=== PATIENT | female | born 1955 | race Two or more races ===

== ENCOUNTER → 2024-03-15 | Outpatient (CLI) | payer MEDICARE, MEDICAID, SELFPAY ==
--- NOTE | 2024-03-15 09:30 | XR_ITS ---
Examination: Breast ultrasound complete, bilateral Date and time of exam: March 15, 2024 0949 hours INDICATIONS: Mammogram March 30, 2023 suspicious microcalcifications 20 mm mass upper outer left breast, personal history right breast cancer 2011 Technique: Real-time grayscale ultrasonographic imaging bilateral breasts, including all 4 quadrants as well as nipple retroareolar and axillary regions. Findings: Sonographic images right breast 12:00 circumscribed oval mass 5 x 5 mm 1:00 oval mass lobular margins with breast biopsy marker 6 x 5 x 7 mm 3:00 oval mass lobular margins 8 x 7 x 9 mm Sonographic images left breast 12:00 oval mass lobular margins with breast biopsy marker microcalcifications 18 x 10 x 16 mm 2:00 oval mass lobular margins 5 x 4 x 5 mm IMPRESSION: BI-RADS Category 4: Suspicious for malignancy Suspicious mass 3:00 position right breast, biopsy is needed to exclude breast carcinoma 3 month follow-up bilateral breast sonography strongly recommended, in particular to document stability of left breast nodules in the 12 and 2:00 position
--- NOTE | 2024-03-15 10:30 | XR_ITS ---
Examination: Screening digital mammography, bilateral Computer aided detection 3-D breast Tomosynthesis, bilateral Date and time of exam: March 15, 2024 1015 hours Compared to mammograms dating to December 10, 2018 Indication: Screening Technique: Nonmagnified MLO, CC views of the breasts to been obtained, reconstructed from 3-D Tomosynthesis images. R2 computer aided detection program utilized for evaluation of suspicious masses and/or abnormal calcifications. 3-D Tomosynthesis images obtained. Findings: The breasts are heterogeneously dense, which may obscure small masses Extensive right breast scar formation are noted consistent with history of right breast cancer and lumpectomy Breast biopsy marker upper outer left breast Large focus suspicious microcalcifications upper outer left breast Impression: BI-RADS Category 4: Suspicious for malignancy Suspicious grouped microcalcifications upper outer left breast, biopsy is needed to exclude breast carcinoma, these calcifications are amenable to stereotactic breast biopsy for diagnosis
== END | disposition home or self-care (01) ==
PROVIDERS: Referring Provider Specialist; Visit Provider Specialist
DX: Z12.31 Encounter for screening mammogram for malignant neoplasm of breast (principal); R92.343 Mammographic extreme density, bilateral breasts; R92.0 Mammographic microcalcification found on diagnostic imaging of breast; N63.15 Unspecified lump in the right breast, overlapping quadrants; N63.25 Unspecified lump in the left breast, overlapping quadrants
CPT/HCPCS: 76641; 77063; 77067

== ENCOUNTER → 2024-04-07 | Outpatient (CLI) | payer MEDICARE, MEDICAID, SELFPAY ==
[2024-04-07 12:36] LABS: Basophils # (Auto) 0.1 Thou/mm3 (0.0-0.2); Basophils % (Auto) 1 % (0-2.5); Eosinophils # (Auto) 0.1 Thou/mm3 (0.0-0.5); Eosinophils % (Auto) 2 % (0-10); Hematocrit 43.1 % (36.0-46.0); Immature Granulocytes % (Auto) 0 % (0-0); Immature Granulocytes Auto 0.01 Thou/mm3 (0.00-0.00); Lymphocytes # (Auto) 2.9 Thou/mm3 (1.0-4.8); Lymphocytes % (Auto) 42 % (10-50); Mean Corpuscular HGB Conc 32.5 g/dl (31.0-37.0); Mean Corpuscular Hemoglobin 28.5 pg (25.0-35.0); Mean Corpuscular Volume 88 fL (80-100); Monocytes # (Auto) 0.4 Thou/mm3 (0.0-0.8); Monocytes % (Auto) 5 % (0-12); Neutrophils # (Auto) 3.5 Thou/mm3 (1.8-7.7); Neutrophils % (Auto) 50 % (37-80); Nucleated Red Blood Cell % 0 /100 WBC (0); Platelet Count 208 Thou/mm3 (140-440); RDW Standard Deviation 42.7 fL (36.4-46.3); Red Blood Count 4.91 Miln/mm3 (4.00-5.20)
[2024-04-07 12:51] LABS: Alanine Aminotransferase 13 U/L (10-49); Albumin, Serum 4.7 gm/dL (3.4-4.8); Albumin/Globulin Ratio 2.1 (1.2-2.2); Alkaline Phosphatase 112 U/L (46-116); Anion Gap 6 (7-16); Aspartate Amino Transferase 14 U/L (0-34); BUN/Creatinine Ratio 19 Ratio (12-20); Bilirubin,Total 1.3 mg/dL (0.3-1.2); Blood Urea Nitrogen 15 mg/dL (9-23); Calcium 10.5 mg/dL (8.3-10.6); Calcium (Corrected) 10.5 mg/dL (8.5-10.1); Carbon Dioxide 30.3 mMol/L (20.0-31.0); Chloride 106 mMol/L (98-107); Creatinine (Component) 0.8 mg/dL (0.6-1.3); Globulin 2.2 gm/dL (2.3-3.5); Glucose 89 mg/dL (74-106); Osmolality,Calculated 282 (275-295); Potassium 4.6 mMol/L (3.4-5.1); Sodium 142 mMol/L (136-145); Total Protein 6.9 gm/dL (5.7-8.2); eGFR > 60 See Note
[2024-04-07 13:07] LABS: CA 15-3 7.1 U/mL (<32.4); Carcinoembryonic Antigen 1.8 ng/mL (0.0-5.0)
== END | disposition home or self-care (01) ==
PROVIDERS: PCP Registered Nurse Community Health; Referring Provider Internal Medicine Hematology & Oncology; Visit Provider Internal Medicine Hematology & Oncology
DX: C50.211 Malignant neoplasm of upper-inner quadrant of right female breast (principal)
CPT/HCPCS: 36415; 80053; 82378; 85025; 86300

== ENCOUNTER → 2024-04-07 | Outpatient (CLI) | payer MEDICARE, MEDICAID, SELFPAY ==
[2024-04-06 10:47] LABS: Basophils # (Auto) 0.1 Thou/mm3 (0.0-0.2); Basophils % (Auto) 2 % (0-2.5); Eosinophils # (Auto) 0.2 Thou/mm3 (0.0-0.5); Eosinophils % (Auto) 2 % (0-10); Hematocrit 43.6 % (36.0-46.0); Immature Granulocytes % (Auto) 0 % (0-0); Immature Granulocytes Auto 0.02 Thou/mm3 (0.00-0.00); Lymphocytes # (Auto) 3.1 Thou/mm3 (1.0-4.8); Lymphocytes % (Auto) 42 % (10-50); Mean Corpuscular HGB Conc 32.1 g/dl (31.0-37.0); Mean Corpuscular Hemoglobin 28.5 pg (25.0-35.0); Mean Corpuscular Volume 89 fL (80-100); Monocytes # (Auto) 0.5 Thou/mm3 (0.0-0.8); Monocytes % (Auto) 6 % (0-12); Neutrophils # (Auto) 3.6 Thou/mm3 (1.8-7.7); Neutrophils % (Auto) 48 % (37-80); Nucleated Red Blood Cell % 0 /100 WBC (0); Platelet Count 214 Thou/mm3 (140-440); RDW Standard Deviation 43.4 fL (36.4-46.3); Red Blood Count 4.91 Miln/mm3 (4.00-5.20); White Blood Count 7.4 Thou/mm3 (3.6-11.0)
[2024-04-06 11:00] LABS: INR 1.1 (0.9-1.3); Partial Thromboplastin Time 25.9 Seconds (22.0-36.0); Prothrombin Time 11.6 Seconds (9.0-12.2)
--- NOTE | 2024-04-07 10:00 | XR_ITS ---
Examination: Stereotactic guided vacuum assisted left breast biopsy with clip placement Specimen radiograph Date and time of exam:April 07, 2024 1139 hours INDICATIONS: Mammogram March 15, 2024 BI-RADS 4 suspicious grouped microcalcifications upper outer left breast Timeout performed, documenting correct patient, order, referring physician, patient's site and reason for procedure, allergies to medications Informed consent provided. Time out performed Technique: The lesion left breast was localized with a stereotactic apparatus. Local anesthesia was obtained after prepping the skin at the entrance site and applying sterile drape Maximum sterile barrier technique. 7 core biopsies were then obtained, vacuum assisted, stereotactically guided, at the lesion site. Specimens appear adequate. Stereotactic breast marker was introduced at the lesion site Estimated blood loss 2 cc. Patient tolerated the procedure well and appeared in satisfactory and stable condition at completion of the procedure Pathology report to follow Impression: Successful stereotactic breast biopsy as described above. Specimen radiograph contains the biopsied suspicious microcalcifications.
== END | disposition home or self-care (01) ==
LOC: CDIM 09:54
PROVIDERS: Radiology Diagnostic Radiology; PCP Family Medicine; Referring Provider Specialist; Visit Provider Specialist
DX: D05.82 Other specified type of carcinoma in situ of left breast (principal); Z01.812 Encounter for preprocedural laboratory examination
CPT/HCPCS: 19081; 36415; 85025; 85610; 85730; A4648; A4649

== ENCOUNTER 2024-04-11 09:44 | Outpatient (RCR) | payer MEDICARE, MEDICAID, SELFPAY ==
--- NOTE | 2024-04-17 13:13 | CTCFLWUP_ITS ---
Patient: DEVORA BEST : 1955 Page 3 of 4 FOLLOW UP NOTE DATE OF SERVICE: 04/11/2024 NAME: DEVORA BEST ACCOUNT: [id number] : 1955 AGE: 69 INTERVAL HISTORY: Patient is here to follow-up on the biopsy done on 04/07/2024. Patient have a new diagnosis of DCIS which is ER positive WY negative and Ki-67 1 to 2%. Patient is very worried and scared and requestin g to get mastectomy done. 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 07/14/2011: Patient had ultrasound-guided biopsy of the right breast nodule which showed ER positive P R negative HER-2/kal overexpressed invasive ductal carcinoma. 07/25/2011: Patient had right breast partial mastectomy, sentinel lymph node biopsy and right axillary dissection. She was found to have a 2.2cm invasive ductal carcinoma single focus, 2 out of 18 lymph nodes were positive for metastatic disease. 08/24/2011: Patient was started on TCH chemotherapy. She received a total of 6 cycles. Her last cycle was given on 12/17/2011. She continued on Herceptin for 1 year which was completed on 08/25/2012. 01/19/2012?03/10/2012: Patient had 6120 cGy of radiation therapy to the right chest wall. After compl eting the radiation therapy patient was tried on letrozole as well as anastrozole. She developed sig nificant arthralgias. They were discontinued. Patient was on Faslodex which she received monthly wh ich was changed to Aromasin on 01/11/2015. Aromasin was changed to tamoxifen on 12/31/2016 due to diff use musculoskeletal pains. 10/19/2017: Patient had bilateral screening digital mammograms which showed benign findings BI-RADS Cat egory 2. 09/17/2018: PET CT scan?10 mm weakly hypermetabolic oval mass retroareolar region right breast, SUV 2. 03 Recommend follow-up diagnostic mammography and bilateral breast sonography 12/12/2018: Bilateral mammograms?BI-RADS category II: Benign Findings. Recommend 1 year follow-up cecily bassett. 12/12/2018: Bilateral breast ultrasound?BI-RADS Category 2: Benign findings.Right breast 1:00 oval mas s 5 x 5 mm well marginated 1:00 oval mass 8 x 9 mm well marginated Left breast sonographic images no cystic or solid mass 12/31/2018: Bilateral breast MRI?BI-RADS Category 2: Benign findings Yearly follow-up mammography niesha mmended Six-month right breast sonogram follow-up recommended 10/25/2019: Patient had endometrial biopsy? 11/08/2019: Location Director is recommending changing tamoxifen to AI. 11/16/2019: Tamoxifen discontinued. Patient is started on Aromasin. 10/05/2023: Aromasin discontinued. 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 amlodipine - 5 mg 1 tab Daily 2. atorvastatin - 20 mg 1 tab Daily 3. B12 - 5,000-100 mcg Daily 4. BenadryL - 25 mg 1 tab Every day before sleep 5. biotin - 1 mg 1 tab Daily 6. Calcium 600 + D(3) - 1 tab Twice a Day 7. exemestane - 25 mg 1 tab Daily 8. Fish Oil [place] 3-6-9 - 300-1,000 mg 2 Capsule Daily 9. gabapentin - 300 mg Three times a day 10. omeprazole - 20 mg 1 tab As needed 11. ondansetron - 4 mg 1 tab As needed 12. Ozempic - 2 mg/dose (8 mg/3 mL) Weekly 13. Plavix - 75 mg 1 tab Daily 14. traMADol - 50 mg 2 tab Daily 15. Ultram - 50 mg 1 tab As needed 16. Vitamin D2 - 1,250 mcg (50,000 unit) 1 Capsule Daily Medications Last Reconciled by Linda Ewing MA on 04/11/2024 ALLERGIES: amoxicillin-pot clavulanate; aspirin; Naproxen REVIEW OF SYSTEMS: A complete 14-point review of systems was performed and is negative except as noted in interval histo ry. PHYSICAL EXAMINATION: VITAL SIGNS: Temperature?99, B/P?148/76, Oxygen?Saturation?96% Weight?203?lbs PAIN: 0 - No pain ECOG Performance Status: 0 - Asymptomatic and fully active GENERAL APPEARANCE: Appears well, in no apparent distress, appropriately interactive. HEENT: Normocephalic, no temporal wasting, normal conjunctiva, no scleral icterus, normal hearing, li ps without lesions, neck normal range of motion. CARDIOVASCULAR: Not assessed. PULMONARY: Normal respiratory effort, no respiratory distress or use of accessory muscles, speaking i n full sentences, no tachypnea. EXTREMITIES: No pedal edema or cyanosis. SKIN: Normal skin appearance. NEUROLOGIC: Alert and oriented x4. PSHYCHIATRIC: Appropriate affect, mood normal, behavior normal, intact thought and speech. LABORATORY DATA: I have personally reviewed and interpreted each of the patient?s relevant lab tests, abnormal finding s are below: Date 04/07/24 ??GLUCOSE,RANDOM?(mg/dL) 89 ??BLOOD?UREA?NITROGEN?(mg/dL) 15 ??CREATININE?(mg/dL) 0.80 ??SODIUM?(mmol/L) 142 ??POTASSIUM?(mmol/L) 4.6 ??CHLORIDE?(mmol/L) 106 ??CrCl?(CandG)?(ml/min) 98.51 ??AST/SGOT?(Unit/L) 14 ??ALT/SGPT?(Unit/L) 13 ??ALKALINE?PHOSPHATASE?(Unit/L) 112 ??BILIRUBIN,?TOTAL?(mg/dL) 1.3?H ??PROTEIN?TOTAL?(gm/dl) 6.9 ??ALBUMIN,?SERUM?(gm/dl) 4.7 ??GLOBULIN?(gm/dl) 2.2?L ??ALBUMIN/GLOBULIN?RATIO 2.1 ??CALCIUM,?SERUM?(mg/dL) 10.5 ??CALCIUM?SERUM?(CORRECTED)?(mg/dL) 10.5?H ASSESSMENT/PLAN: #1 high-grade DCIS Patient's recent biopsy showed high-grade DCIS recurrence Patient have a history of stage IIIa (pT2, pN2a,cM0) ER positive WY negative HER-2/kal overexpressed invasive ductal carcinoma of right breast. Status post surgery, radiation therapy, adjuvant chemoth erapy Patient had endometrial biopsy which showed hyperplasia without atypia. Patient's Aromasin was stopp ed in July 2023 Plan is to send Ms. Best for surgery for possible bilateral mastectomy with reconstruction Will place referral to plastics as well as general surgery Will also do genetic testing to see if patient is at high risk of breast cancer recurrences Will restart her on antiendocrine therapy. Patient was tolerating exemestane so will restart Advised to take calcium and vitamin D3 ORDERS: Plastics and general surgery referrals done CBC CMP CA 15-3 Aromasin reordered Calcium and vitamin D3 Genetic testing to see if patient has a BRCA1 or BRCA2 RETURN TO CLINIC: 6 to 8 weeks BILLING AND COMPLIANCE: I reviewed external records from providers outside my specialty as summarized above. I spent a total of 50 minutes on this patient?s care on the day of their visit excluding time spent related to any bi lled procedures. This time includes time spent with the patient as well as time spent documenting in the medical record, reviewing patients records and tests, obtaining history, placing orders, communi cating with other healthcare professionals, counseling the patient, family or caregiver, and/or care coordination for the diagnoses above. Electronically Signed by: {Object.Sanct_ID*PnP.NameFL@M}, {Object.Sanct_ID*PnP.Suffix@U} D: {Object.Sanct_Date} T: {Object.Sanct_Time} CC: Zahida?Rosanne,? PCP: Mihir Marr Referring: Mihir Marr This document was completed utilizing speech recognition software. Grammatical errors, random word in sertions, pronoun errors, and incomplete sentences are an occasional consequence of this system due t o software limitations, ambient noise, and hardware issues. Any formal questions or concerns about th e content, text or information contained within the body of this dictation should be directly address ed to the provider for clarification.
== END 2024-04-19 23:59 | disposition home or self-care (01) ==
LOC: SCTC 09:44
PROVIDERS: PCP Family Medicine; Referring Provider Family Medicine; Visit Provider Internal Medicine Hematology & Oncology
DX: D05.12 Intraductal carcinoma in situ of left breast (principal); Z17.0 Estrogen receptor positive status [ER+]; Z17.22 Progesterone receptor negative status; Z85.3 Personal history of malignant neoplasm of breast; N85.00 Endometrial hyperplasia, unspecified
CPT/HCPCS: 99212; G0463

== ENCOUNTER → 2024-04-28 | Outpatient (CLI) | payer MEDICARE, MEDICAID, SELFPAY ==
[2024-04-28 09:46] LABS: Misc Send Out* See Sep Rpt
== END | disposition home or self-care (01) ==
LOC: SCTO 09:30
PROVIDERS: PCP Family Medicine; Referring Provider Internal Medicine Hematology & Oncology; Visit Provider Internal Medicine Hematology & Oncology
DX: C50.211 Malignant neoplasm of upper-inner quadrant of right female breast (principal)

== ENCOUNTER 2024-06-10 07:15 | Day surgery (SDC) | payer MEDICARE, MEDICAID, SELFPAY ==
--- NOTE | 2024-06-07 10:05 | EKG_ITS ---
[facility] Test Date: 2024-06-07 Pat Name: DEVORA NICHOLSON Department: Room: - Gender: Female [place]: JAra : 1955 Requested By: Vinny Ro Order Number: [id number] Reading MD: Vinny Ro Measurements Intervals Roxie Rate: 66 P: 25 GA: 128 QRS: 35 QRSD: 98 T: 61 QT: 398 QTc: 419 Interpretive Statements SINUS RHYTHM Compared to ECG 10/17/2019 08:25:23 No significant changes /store/S0/[id number].pdf
[2024-06-07 10:15] VITALS: BMI 28.2
[2024-06-07 11:47] LABS: Alanine Aminotransferase 12 U/L (10-49); Albumin, Serum 4.8 gm/dL (3.4-4.8); Alkaline Phosphatase 116 U/L (46-116); Anion Gap 8 (7-16); Aspartate Amino Transferase 13 U/L (0-34); BUN/Creatinine Ratio 14 Ratio (12-20); Bilirubin,Total 1.5 mg/dL (0.3-1.2); Blood Urea Nitrogen 11 mg/dL (9-23); Carbon Dioxide 28.9 mMol/L (20.0-31.0); Chloride 105 mMol/L (98-107); Creatinine (Component) 0.8 mg/dL (0.6-1.3); Estimated Creatinine Clearance 85.3 mL/min (>60); Globulin 2.4 gm/dL (2.3-3.5); Glucose 114 mg/dL (74-106); INR 1.1 (0.9-1.3); Osmolality,Calculated 283 (275-295); Partial Thromboplastin Time 26.7 Seconds (22.0-36.0); Potassium 4.1 mMol/L (3.4-5.1); Sodium 142 mMol/L (136-145); Total Protein 7.2 gm/dL (5.7-8.2); eGFR > 60 See Note
[2024-06-07 11:52] LABS: Basophils # (Auto) 0.1 Thou/mm3 (0.0-0.2); Basophils % (Auto) 1 % (0-2.5); Eosinophils # (Auto) 0.2 Thou/mm3 (0.0-0.5); Eosinophils % (Auto) 2 % (0-10); Hematocrit 43.8 % (36.0-46.0); Hemoglobin 14.2 g/dL (12.0-16.0); Immature Granulocytes % (Auto) 0 % (0-0); Immature Granulocytes Auto 0.02 Thou/mm3 (0.00-0.00); Lymphocytes # (Auto) 3.1 Thou/mm3 (1.0-4.8); Lymphocytes % (Auto) 34 % (10-50); Mean Corpuscular HGB Conc 32.4 g/dl (31.0-37.0); Mean Corpuscular Hemoglobin 28.8 pg (25.0-35.0); Mean Corpuscular Volume 89 fL (80-100); Monocytes # (Auto) 0.6 Thou/mm3 (0.0-0.8); Monocytes % (Auto) 7 % (0-12); Neutrophils % (Auto) 56 % (37-80); Nucleated Red Blood Cell % 0 /100 WBC (0); Platelet Count 234 Thou/mm3 (140-440); RDW Standard Deviation 43.7 fL (36.4-46.3); Red Blood Count 4.93 Miln/mm3 (4.00-5.20)
--- NOTE | 2024-06-09 14:12 | SUR.PREOP ---
Pt stated her left big toe nail came off and she has a small drainage, Dr Lin HERNANDEZ notified Ratna, she stated she will let Dr Chen know and if anything she will let me know.
[2024-06-10] VITALS (17 sets, daily range): BP systolic 74–186; BP diastolic 47–90; PULSE 52–85; RESP 15–20; TEMP 35.9–36.5; O2SAT 93–100; BMI 28.6
--- NOTE | 2024-06-10 08:14 | CHAP ---
Patient expressed gratitude for prayer before their procedure.
--- NOTE | 2024-06-10 13:00 | SUR.PHASEI ---
1300: Pt. AAOx4, vitals stable, breathing unlabored, no complaint of pain or nausea, dressing to chest CDI, x2 SHEY drains in place draining sanguineous fluid, report received from King MALCOLM, David Tucker RN.
[2024-06-10] MEDS: GABAPENTIN 300 MG CAPSULE PO (13:41)
[2024-06-10] MEDS: fentaNYL CIT INJ 50 mCg/ML AMP 2ML IV ×4 (13:52→15:05)
--- NOTE | 2024-06-10 14:00 | ESOP_ITS ---
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 Patient also had some lymph nodes in both axilla which were removed Procedure Description This patient is scheduled for bilateral mastectomy for the following reasons. Patient has developed second primary on the left breast in spite of aggressive treatment following the right breast consisting of chemotherapy and radiation and hormone treatment. The left breast carcinoma was seen over the left upper and outer quadrant and was biopsy-proven and turned out to be high-grade DCIS. Instead of operating on this lesion once again with a lumpectomy followed by radiation with possible chance for recurrence we strongly recommended bilateral mastectomy. This would avoid additional radiation for this patient which she has already had on the right breast. Moreover patient skip having a lot of abnormality on the mammogram on both the breast requiring multiple biopsies. Therefore bilateral mastectomy was planned. After the patient was brought to the operating room endotracheal anesthesia was given. Then both the breasts were washed with ChloraPrep solution and draped in a sterile manner. Tablets were stitched on the side of the chest to obtain a sterile drape. Timeout was performed. Then I made an elliptical incision over the right breast and raised the skin flaps using skin hooks and dissected out the anterior breast. The breast was removed from the pectoralis major muscle and I found a node in the right axilla which was removed for histopathology. The flap is very thin on the right side because of the radiation. Skin was closed with nelson. Then the left breast was similarly removed by making elliptical incision and raising the flap using skin hooks. At the upper and outer quadrant 2 o'clock position patient had a hard lump which may be the DCIS. This was very close to the skin and I removed the anterior breast from the chest wall and delivered it. Additional margins were taken to the for the possible cancer which was showing scar tissue on the left breast. There were 2 lymph nodes which were removed from the left axilla as well and sent separately. Then the skin was closed using 3-0 chromic for the subcutaneous tissue and nelson for approximation of the skin. Dressing was applied with Adaptic and fluff on the left drain on both sides which is a 15 round Franklin-Chew which was stitched to the chest wall with 2-0 silk. Patient tolerated the procedure well and left operating room in stable condition Anesthesia GETA Pathology / specimen Other (1. Right breast, #2 right axillary lymph node, #3 left breast with palpable abnormality, #4 2 left axillary lymph nodes, #5 additional margin for the left breast mass) Estimated Blood Loss 250 Condition Stable Disposition PACU Surgeon Earnestine Demarco MD Surgical Staff Operation Date: 06/10/24 09:45 Case Staff [employer] PRODUCTION ASSOCIATE: Tierra Meehan. BIOFU[employer] PRODUCTION ASSOCIATE: Gio Escalante RNflanging roll operator: Garima Tidwell RNflanging roll operator: Ivis Whittington
[2024-06-10] MEDS: ACETAMINOPHEN IVPB 1,000 MG/100 ML VIAL 250 MG IV (15:05)
--- NOTE | 2024-06-10 15:30 | SUR.PHASEII ---
1530: Pt. AAOx4, vitals stable, breathing unlabored, no complaint of pain or nausea, dressing to breast CDI, x2 SHEY drains present draining sanguineous fluid, pt. tolerated sips of water well, gave report to Whitney RAIN prior to transfer to room 379. Family made aware of transfer to room, pt. transferred with all personal belongings.
--- NOTE | 2024-06-10 16:11 | PC.NURSE ---
Addendum entered by Fabian Mena RN 06/10/24 16:28: RN spoke with Dr. Chen regarding the left upper extremity IV. Dr. Chen states it is ok to use the left arm for IV, blood pressure and lab draws.. Original Note: RN spoke with Dr. Chen regarding the left upper extremity IV. Dr. Chen states it is ok to use the IV.
[2024-06-10] MEDS: SODIUM CHLORIDE 0.9% 1000 ML 1,000 ML 50 ML IV (16:29)
[2024-06-10] MEDS: KETOROLAC INJ 30 MG/ML VIAL IVP (16:30)
[2024-06-10] MEDS: SODIUM CHLORIDE 0.9% 1000 ML 1,000 ML 999 ML IV (17:35)
--- NOTE | 2024-06-10 17:48 | EVENTNT_ITS ---
Documentation for date of: 06/10/24 Event Note Event Note: RAPID RESPONSE Time : 5:45 PM Reason: Low BP, MAP <60 Ms Nasir is a 69 year old female s/p bilateral mastectomy tran DCIS, performed today, with <250 cc blood loss. BP post operatively was 150/70s. Patient received IV ketorolac 30 mg x 1 and was running maintenance fluids at 50 cc/h as per general surgery recommendations. Rapid response was called for MAP 58 and low blood pressure of 80s/60s. On physical exam, patient endorses mild dizziness and blurry vision which lasted for about 10 seconds and improved spontaneously. After careful review of the chart, patient was started on 1 L lactated ringer bolus. Patient's blood pressure improved to 110s/70s over the next 7-8 minutes while IV fluids are being pressure bagged. Maintenance fluid rate was also increased to 75 cc/h. General Surgery Dr Demarco was duly informed about the rapid and updated on patient condition. Plan of care discussed with attending Kenneth Murguia M.D. PGY2 Disclaimer: This note was dictated by speech recognition. Minor errors in bisque placer may be present due to voice recognition software.
[2024-06-10] MEDS: SODIUM CHLORIDE 0.9% 1000 ML 1,000 ML 75 ML IV (18:35)
[2024-06-10] MEDS: SODIUM CHLORIDE 0.9% 1000 ML 1,000 ML 125 ML IV (19:19)
[2024-06-10] MEDS: FAMOTIDINE INJ 10 MG/ML VIAL 2 ML 40 MG IVP (19:46)
[2024-06-10 19:51] LABS: Basophils # (Auto) 0.1 Thou/mm3 (0.0-0.2); Basophils % (Auto) 1 % (0-2.5); Eosinophils # (Auto) 0.1 Thou/mm3 (0.0-0.5); Eosinophils % (Auto) 1 % (0-10); Hematocrit 31.8 % (36.0-46.0); Hemoglobin 10.5 g/dL (12.0-16.0); Immature Granulocytes % (Auto) 0 % (0-0); Immature Granulocytes Auto 0.07 Thou/mm3 (0.00-0.00); Lymphocytes # (Auto) 1.4 Thou/mm3 (1.0-4.8); Lymphocytes % (Auto) 7 % (10-50); Mean Corpuscular Hemoglobin 29.7 pg (25.0-35.0); Mean Corpuscular Volume 90 fL (80-100); Monocytes # (Auto) 0.5 Thou/mm3 (0.0-0.8); Monocytes % (Auto) 3 % (0-12); Neutrophils # (Auto) 16.2 Thou/mm3 (1.8-7.7); Neutrophils % (Auto) 88 % (37-80); Nucleated Red Blood Cell % 0 /100 WBC (0); Platelet Count 211 Thou/mm3 (140-440); RDW Standard Deviation 43.8 fL (36.4-46.3); Red Blood Count 3.54 Miln/mm3 (4.00-5.20); White Blood Count 18.3 Thou/mm3 (3.6-11.0)
[2024-06-10] MEDS: INSULIN LISPRO (AdmeLOG) 1 UNIT/0.01 ML UNIT SC (21:22)
--- NOTE | 2024-06-10 21:26 | PD.SURPROG ---
Documentation for date of: 06/10/24 Subjective Subjective Narrative: The patient started having hypotension this evening around 5:00 and a rapid response was called. Her blood pressure was in the range of 70s. When I arrived her blood pressure has been brought to normal by infusion of fluid. Patient is awake and alert and does not complain any pain I advised her to give some IV fluid. Exam Vital Signs Temp Pulse Resp BP Pulse Ox O2 Del Method O2 Flow Rate 96.7 F L 78 17 97/57 L 95 Room Air 2 06/10/24 20:00 06/10/24 21:25 06/10/24 20:00 06/10/24 21:06/10/24 20:00 06/10/24 20:00 06/10/24 15:15 Assessment & Plan Assessment Additional comments: Impression: Possible postoperative bleeding We shall check the hemoglobin and I will infuse normal saline at 125 cc/h Plan Plan: We shall monitor the blood pressure closely Procedures Procedures Bilateral mastectomy
--- NOTE | 2024-06-10 21:29 | PD.SURPROG ---
Documentation for date of: 06/10/24 Subjective Subjective Narrative: The patient was seen again around 9:00 this p.m. because her blood pressure was in the 90s. Her hemoglobin showed 10.4. WBC is elevated 18th Exam Vital Signs Temp Pulse Resp BP Pulse Ox O2 Del Method O2 Flow Rate 96.7 F L 78 17 97/57 L 95 Room Air 2 06/10/24 20:00 06/10/24 21:25 06/10/24 20:00 06/10/24 21:06/10/24 20:00 06/10/24 20:00 06/10/24 15:15 Her vital signs are normal at this time and her heart rate is 78 Routine Chest/Breast/Axilla Exam Comments: I looked at the chest wound on the left side and it seemed to have a hematoma underneath and it was fluctuant Assessment & Plan Assessment Additional comments: Impression: Postoperative bleeding at the site of mastectomy Plan Plan: We will have to take the patient to the operating room to stop the bleeding. Franklin-Chew is draining fair amount of blood on the left side. This was explained to the family and the patient and she is agreeable Procedures Procedures Bilateral mastectomy
[2024-06-11] VITALS (28 sets, daily range): BP systolic 91–166; BP diastolic 50–83; PULSE 77–93; RESP 16–95; TEMP 36.2–37.4; O2SAT 92–99
--- NOTE | 2024-06-11 00:21 | SUR.PHASEI ---
Received pt and report from KOFFI Gómez and Dr. Ro. Patient resting with eyes closed, vss, no distress noted. dressing to bilat breast CDI, breast binder in place. SHEY drains x2, draining well. f/c inplace, draining well. IV to left hand in place, no s/s of redness or infiltration noted. will continue to monitor
[2024-06-11 00:57] LABS: Hematocrit 25.1 % (36.0-46.0)
--- NOTE | 2024-06-11 00:57 | SUR.PHASEI ---
pt recovering well.. vss, dressing remains cdi, f/c continues to drain. SHEY drain x2 continues to drain well. IV still intact, no s/s of infiltration or redness to site. no distress noted. Report given to KOFFI Mishra.
[2024-06-11] MEDS: SODIUM CHLORIDE 0.9% 1000 ML 1,000 ML 150 ML IV ×2 (00:59→04:52)
[2024-06-11] MEDS: GABAPENTIN 100 MG CAPSULE 300 MG PO ×3 (05:44→21:31)
[2024-06-11 06:40] LABS: Basophils # (Auto) 0.1 Thou/mm3 (0.0-0.2); Basophils % (Auto) 1 % (0-2.5); Eosinophils % (Auto) 0 % (0-10); Hematocrit 21.8 % (36.0-46.0); Immature Granulocytes % (Auto) 1 % (0-0); Immature Granulocytes Auto 0.06 Thou/mm3 (0.00-0.00); Lymphocytes % (Auto) 15 % (10-50); Mean Corpuscular HGB Conc 32.6 g/dl (31.0-37.0); Mean Corpuscular Hemoglobin 29.7 pg (25.0-35.0); Mean Corpuscular Volume 91 fL (80-100); Monocytes # (Auto) 0.7 Thou/mm3 (0.0-0.8); Monocytes % (Auto) 6 % (0-12); Neutrophils # (Auto) 10.1 Thou/mm3 (1.8-7.7); Neutrophils % (Auto) 78 % (37-80); Nucleated Red Blood Cell % 0 /100 WBC (0); Platelet Count 153 Thou/mm3 (140-440); Red Blood Count 2.39 Miln/mm3 (4.00-5.20)
[2024-06-11 06:47] LABS: Hemoglobin 7.1 g/dL (12.0-16.0)
--- NOTE | 2024-06-11 07:39 | PC.SS ---
Patient Maricruz Best is a 69 Year old female admitted for FARRAH MAST [id number]. SS met with patient at bedside to review demographic information. Patient reports she lives at home with her daughter, Anais Scott who she reports is her surrogate decision maker [phone]. Patient appeared to be alert and oriented. Patient reported that prior to admission she was able to ambulate without assistance. Patient reports she is able to complete ADL's independently. Patient reports her PCP is Mihir Marr. At time of discharge she will return back home. Next kin: Daughter, Heidi Scott Discharge plan: Home
--- NOTE | 2024-06-11 07:57 | PC.NURSE ---
Doctor Edin called, new orders received to transfuse 2 units of PRBCs due to hgb of 7.1, to transfuse slowly. Doctor is aware of labs.
[2024-06-11] MEDS: INSULIN LISPRO (AdmeLOG) 1 UNIT/0.01 ML UNIT SC ×4 (08:07→21:49)
[2024-06-11] MEDS: ATORVASTATIN CALCIUM 20 MG TABLET PO (08:10)
[2024-06-11] MEDS: PANTOPRAZOLE 40 MG TABLET 20 MG PO (08:10)
--- NOTE | 2024-06-11 12:42 | PD.SUROPNT ---
Date of Procedure 06/10/24 Pre Op Diagnosis Bleeding from the mastectomy site on the left side Post Op Diagnosis Same Procedure Control of the bleeding from the mastectomy site on the left side Findings Patient was found to have some arterial as well as small oozing from the surface of the muscle after mastectomy 8 hours ago. Bleeding was controlled. Procedure Description The patient was brought to the operating room and endotracheal anesthesia was given. Then the dressing was removed and the area was washed with Betadine solution and draped in a sterile manner. Patient received 2 g of Ancef. Then I opened the incision by removing the nelson after the timeout was performed. I was able to evacuate large clots on the anterior chest wall below the flaps. I used some saline solution and irrigated the area and look for bleeding. There were couple of arterial bleeding which were small but actively bleeding and they were suture-ligated with 3-0 chromic. Then I found out that the anterior surface of the pectoralis major muscle was showing some signs of a small amount of oozing which was controlled with cautery. A diligent search was made for any additional bleeding. Some of the clots in the axilla were removed and looked for any bleeding. I used a two 0-0 and 3-0 chromic sutures to control any oozing. Then hot packs were used to make sure that there was not much bleeding patient also received tranexamic acid 1 g during the surgery. On the lateral portion of the wound she was still collecting some blood. Therefore I used Surgicel powder for hemostasis. Then I left a #15 round Franklin-Chew drain and closed the wound in layers using 3-0 chromic for the subcutaneous tissue and then nelson for the skin. Dressing was applied with Adaptic and fluff with compression bandage with breast binder. Patient tolerated the procedure well Anesthesia GETA Pathology / specimen None IVF Infused 1,500 Estimated Blood Loss 400 Condition Stable Disposition PACU Surgeon Earnestine Demarco MD Surgical Staff Operation Date: 06/11/24 23:15 <No data on this case meets the specified criteria>
--- NOTE | 2024-06-11 12:47 | ESPR_ITS ---
Documentation for date of: 06/11/24 Subjective Subjective Narrative: The patient is feeling better after surgery last night to control the bleeding. Her vital signs are normal except mild tachycardia Exam Vital Signs Temp Pulse Resp BP Pulse Ox O2 Del Method O2 Flow Rate 97.8 F 81 18 113/63 92 L Room Air 1 06/11/24 12:00 06/11/24 12:00 06/11/24 12:00 06/11/24 12:00 06/11/24 12:06/11/24 12:06/11/24 08:49 Routine Chest/Breast/Axilla Exam Comments: Examination of the chest wound showed no further evidence of bleeding. Franklin- Chew drainage is minimal. He is drained only about 25 cc and it is dark blood. The blood pressure has been maintained ever since his surgery at a reasonable level. Her blood glucose is under control to Assessment & Plan Assessment Additional comments: Impression: Stable postoperative course following control of bleeding. Her hemoglobin is 7.1 as expected Plan Plan: We shall transfuse 2 units of blood to bring of the hemoglobin around 10. I discussed with the patient and her daughter about the pros and cons of transfusion. Even though she may not need a transfusion until it goes below 7 g I strongly feel that we should catch up with the blood that is lost due to bilateral mastectomy. She may have some systemic symptoms like weakness and tiredness if she continues to be anemic. I explained to them that it will take some time for them to build up the hemoglobin. Patient has therefore decided to get the blood transfusion. Procedures Procedures Control of the bleeding from the mastectomy site on the left side
[2024-06-11] MEDS: HYDROcodone/APAP 5/325 TABLET 1 TAB PO ×2 (15:30→21:30)
[2024-06-11 17:50] LABS: Basophils # (Auto) 0.1 Thou/mm3 (0.0-0.2); Basophils % (Auto) 1 % (0-2.5); Eosinophils % (Auto) 0 % (0-10); Hematocrit 25.5 % (36.0-46.0); Immature Granulocytes % (Auto) 0 % (0-0); Immature Granulocytes Auto 0.03 Thou/mm3 (0.00-0.00); Lymphocytes # (Auto) 2.7 Thou/mm3 (1.0-4.8); Lymphocytes % (Auto) 27 % (10-50); Mean Corpuscular HGB Conc 33.7 g/dl (31.0-37.0); Mean Corpuscular Hemoglobin 29.6 pg (25.0-35.0); Mean Corpuscular Volume 88 fL (80-100); Monocytes # (Auto) 0.7 Thou/mm3 (0.0-0.8); Monocytes % (Auto) 7 % (0-12); Neutrophils # (Auto) 6.5 Thou/mm3 (1.8-7.7); Neutrophils % (Auto) 66 % (37-80); Nucleated Red Blood Cell % 0 /100 WBC (0); Platelet Count 154 Thou/mm3 (140-440); RDW Standard Deviation 49.1 fL (36.4-46.3); Red Blood Count 2.91 Miln/mm3 (4.00-5.20)
[2024-06-11 17:59] LABS: Hemoglobin 8.6 g/dL (12.0-16.0)
[2024-06-11] MEDS: amLODIPine BESYLATE 5 MG TABLET PO (20:12)
[2024-06-11] MEDS: DOCUSATE SOD 100 MG CAPSULE PO (20:13)
[2024-06-11] MEDS: MORPHINE SULF INJ 10 MG/ML VIAL 3 MG IVP (23:26)
[2024-06-12] VITALS: BP 116/57; PULSE 77; RESP 18; TEMP 36.8; O2SAT 96
[2024-06-12 04:00] VITALS: BP 132/61; PULSE 73; RESP 15; TEMP 36.9; O2SAT 92
[2024-06-12] MEDS: GABAPENTIN 100 MG CAPSULE 300 MG PO (05:50)
[2024-06-12] MEDS: MORPHINE SULF INJ 10 MG/ML VIAL 3 MG IVP (05:58)
[2024-06-12 06:32] LABS: Basophils # (Auto) 0.1 Thou/mm3 (0.0-0.2); Basophils % (Auto) 1 % (0-2.5); Eosinophils # (Auto) 0.1 Thou/mm3 (0.0-0.5); Eosinophils % (Auto) 1 % (0-10); Hematocrit 24.4 % (36.0-46.0); Immature Granulocytes % (Auto) 0 % (0-0); Immature Granulocytes Auto 0.03 Thou/mm3 (0.00-0.00); Lymphocytes # (Auto) 3.3 Thou/mm3 (1.0-4.8); Lymphocytes % (Auto) 37 % (10-50); Mean Corpuscular HGB Conc 33.2 g/dl (31.0-37.0); Mean Corpuscular Hemoglobin 29.3 pg (25.0-35.0); Mean Corpuscular Volume 88 fL (80-100); Monocytes # (Auto) 0.6 Thou/mm3 (0.0-0.8); Monocytes % (Auto) 7 % (0-12); Neutrophils # (Auto) 4.8 Thou/mm3 (1.8-7.7); Neutrophils % (Auto) 55 % (37-80); Nucleated Red Blood Cell % 0 /100 WBC (0); Platelet Count 131 Thou/mm3 (140-440); RDW Standard Deviation 49.9 fL (36.4-46.3); Red Blood Count 2.76 Miln/mm3 (4.00-5.20); White Blood Count 8.7 Thou/mm3 (3.6-11.0)
[2024-06-12 06:45] LABS: Hemoglobin 8.1 g/dL (12.0-16.0)
[2024-06-12 08:00] VITALS: BP 130/60; PULSE 73; RESP 18; TEMP 36.4; O2SAT 91
[2024-06-12] MEDS: PANTOPRAZOLE 40 MG TABLET 20 MG PO (09:55)
[2024-06-12] MEDS: ATORVASTATIN CALCIUM 20 MG TABLET PO (09:55)
[2024-06-12] MEDS: DOCUSATE SOD 100 MG CAPSULE PO (09:55)
--- NOTE | 2024-06-12 11:34 | PD.SURPROG ---
Documentation for date of: 06/12/24 Subjective Subjective Narrative: The patient is feeling comfortable. She is asymptomatic from the bleeding which was corrected with transfusion Exam Vital Signs Temp Pulse Resp BP Pulse Ox O2 Del Method O2 Flow Rate 97.6 F 73 18 130/60 91 L Room Air 82 06/12/24 08:00 06/12/24 08:00 06/12/24 08:00 06/12/24 08:00 06/12/24 08:00 06/12/24 08:00 06/11/24 13:35 Her vital signs are stable Routine Chest/Breast/Axilla Exam Comments: The dressing over the chest was changed. There is a minimal fluid on the right side on the Franklin-Chew. But the whole blood is draining on the left side mastectomy site Results Results: Laboratory Laboratory Narrative: Hemoglobin is stable around 8.1 g and WBC is within normal limits Assessment & Plan Assessment Additional comments: Impression: Stable postoperative course following bleeding at the site of mastectomy Anemia Diabetes Plan Plan: We shall discharge patient today and see her in my office tomorrow to take out the drain on the right side. The drain on the left side has to be left for some more time. Procedures Procedures Control of the bleeding from the mastectomy site on the left side
[2024-06-12 12:00] VITALS: BP 153/73; PULSE 77; RESP 18; TEMP 36.4; O2SAT 93
--- NOTE | 2024-06-13 07:25 | ESDS_ITS ---
RE: DEVORA NICHOLSON : 1955 DATE OF ADMISSION: 06/10/2024 DATE OF DISCHARGE: 06/12/2024 13:03 DATE OF ADMISSION: 06/10/2024 DATE OF DISCHARGE: 06/12/2024 FINAL DIAGNOSES: 1. High-grade DCIS of the left breast. 2. Status post invasive carcinoma of the right breast, treated with radiation and chemotherapy and surgery. Postoperative bleeding following bilateral mastectomy requiring a visit to the operating room for control of the bleeding 2 units of RBCs transfusion 3. Hypertension. 4. Diabetes. 5. Arthritis. 6. Peripheral vascular disease. 7. Obesity. REASON FOR ADMISSION: This patient was planned for bilateral mastectomy; and after the surgery, she was admitted to the hospital for pain control. Unfortunately, the patient developed bleeding on the left mastectomy site on the evening of surgery for which she had to be taken to the operating room for control of the bleeding on the same night, which was 06/10/2024. Her postoperative course was uneventful, but thepatient's hemoglobin dropped significantly to around 7.1g. Therefore, she was given 2 units of RBCs, and her hemoglobin stayed around 8.1 g. The patient's dressing was changed postoperatively and it seemed to be intact and therefore, the patient was discharged. She will be seen in my office for a followup. At the time of discharge, she was advised to resume all her prehospital medications, and pain will be controlled with tramadol as well as Tylenol. Patient had bilateral Franklin- Chew drains and she was instructed along with her daughter about how to take care of the. DT: 11:46:35 TT: 15:19:00 Ref: [id number] - TID: [id number] MTDD
== END 2024-06-12 13:03 | disposition home or self-care (01) ==
LOC: S2EX 07:19 → S3SX 23:04
PROVIDERS: PCP Family Medicine; Referring Provider Surgery; Visit Provider Surgery
PROC: (CPT 19301; principal; 2024-06-10 09:30)
DX: L76.22 Postprocedural hemorrhage of skin and subcutaneous tissue following other procedure (principal); E11.9 Type 2 diabetes mellitus without complications; I10 Essential (primary) hypertension; E11.51 Type 2 diabetes mellitus with diabetic peripheral angiopathy without gangrene; E66.9 Obesity, unspecified; Z68.28 Body mass index [BMI] 28.0-28.9, adult; Z85.3 Personal history of malignant neoplasm of breast; Z92.3 Personal history of irradiation
CPT/HCPCS: 19301; 36415; 80053; 85014; 85018; 85025; 85610; 85730; 86850; 86900; 86901; 86923; 88361; 93005; 94664; A4217; A4649; J0131; J0330; J0690; J1100; J1815; J1885; J2250; J2270; J2405; J2704; J2710; J2765; J2795; J3010; J3490; J7030; P9016; P9045; A9270; J1596; J1805

== ENCOUNTER 2024-06-23 14:08 | Outpatient (RCR) | payer MEDICARE, MEDICAID, SELFPAY ==
--- NOTE | 2024-06-27 01:02 | CTCFLWUP_ITS ---
Patient: DEVORA BEST : 1955 Page 3 of 4 FOLLOW UP NOTE DATE OF SERVICE: 06/23/2024 NAME: DEVORA BEST ACCOUNT: [id number] : 1955 AGE: 69 INTERVAL HISTORY: Patient had biopsy on 04/07/2024. Patient have a new diagnosis of DCIS which is ER positive TN negative and Ki-67 1 to 2%. Patient was sent to surgery for mastectomy and is now diagnosed with invasive breast cancer. Patient is here to follow-up ONCOLOGY HISTORY: DIAGNOSIS: Malignant neoplasm of upper-inner quadrant of right female breast [ICD10] C50.211 DATE OF DIAGNOSIS: 07/25/2011 stage IIIa right breast cancer s/p lumpectomy 04/07/2024 reoccurrence of high-grade DCIS STAGE/TNM: IIIA T2 N2a M0 TREATMENT HISTORY: Care?Plan Start?Date Cycle Day Intent HISTORY OF PRESENT ILLNESS: Devora Best is a 69-year-old Maldivian-speaking female with following oncology history. 07/14/2011: Patient had ultrasound-guided biopsy of the right breast nodule which showed ER positive TN negative HER-2/kal overexpressed invasive ductal carcinoma. 07/25/2011: Patient had right breast partial mastectomy, sentinel lymph node biopsy and right axillary dissection. She was found to have a 2.2cm invasive ductal carcinoma single focus, 2 out of 18 lymph nodes were positive for metastatic disease. 08/24/2011: Patient was started on TCH chemotherapy. She received a total of 6 cycles. Her last cycle was given on 12/17/2011. She continued on Herceptin for 1 year which was completed on 08/25/2012. 01/19/2012?03/10/2012: Patient had 6120 cGy of radiation therapy to the right chest wall. After completing the radiation therapy patient was tried on letrozole as well as anastrozole. She developed significant arthralgias. They were discontinued. Patient was on Faslodex which she received monthly which was changed to Aromasin on 01/11/2015. Aromasin was changed to tamoxifen on 12/31/2016 due to diffuse musculoskeletal pains. 10/19/2017: Patient had bilateral screening digital mammograms which showed benign findings BI-RADS Category 2. 09/17/2018: PET CT scan?10 mm weakly hypermetabolic oval mass retroareolar region right breast, SUV 2.03 Recommend follow-up diagnostic mammography and bilateral breast sonography 12/12/2018: Bilateral mammograms?BI-RADS category II: Benign Findings. Recommend 1 year follow-up mammogram. 12/12/2018: Bilateral breast ultrasound?BI-RADS Category 2: Benign findings.Right breast 1:00 oval mass 5 x 5 mm well marginated 1:00 oval mass 8 x 9 mm well marginated Left breast sonographic images no cystic or solid mass 12/31/2018: Bilateral breast MRI?BI-RADS Category 2: Benign findings Yearly follow-up mammography recommended Six-month right breast sonogram follow-up recommended 10/25/2019: Patient had endometrial biopsy? 11/08/2019: Fence Supervisor is recommending changing tamoxifen to AI. 11/16/2019: Tamoxifen discontinued. Patient is started on Aromasin. 10/05/2023: Aromasin discontinued. 04/07/2024 high-grade DCIS ER positive TN negative Ki-67 1 to 2% OTHER MEDICAL HISTORY/CONDITIONS: FAMILY HISTORY: SOCIAL HISTORY: [employer] HISTORY: MEDICATIONS: 1. atorvastatin - 20 mg 1 tab Daily 2. B12 - 5,000-100 mcg Daily 3. BenadryL - 25 mg 1 tab Every day before sleep 4. biotin - 1 mg 1 tab Daily 5. Calcium 600 + D(3) - 1 tab Twice a Day 6. exemestane - 25 mg 1 tab Daily 7. Fish Oil [place] 3-6-9 - 300-1,000 mg 2 Capsule Daily 8. gabapentin - 300 mg Three times a day 9. omeprazole - 20 mg 1 tab As needed 10. ondansetron - 4 mg 1 tab As needed 11. Ozempic - 2 mg/dose (8 mg/3 mL) Weekly 12. traMADol - 50 mg 2 tab Daily 13. Ultram - 50 mg 1 tab As needed 14. Vitamin D2 - 1,250 mcg (50,000 unit) 1 Capsule Daily Medications Last Reconciled by Linda Ewing MA on 06/23/2024 ALLERGIES: amoxicillin-pot clavulanate; aspirin; Naproxen REVIEW OF SYSTEMS: A complete 14-point review of systems was performed and is negative except as noted in interval history. PHYSICAL EXAMINATION: VITAL SIGNS: PAIN: 0 - No pain ECOG Performance Status: 0 - Asymptomatic and fully active GENERAL APPEARANCE: Appears well, in no apparent distress, appropriately interactive. HEENT: Normocephalic, no temporal wasting, normal conjunctiva, no scleral icterus, normal hearing, lips without lesions, neck normal range of motion. CARDIOVASCULAR: Not assessed. PULMONARY: Normal respiratory effort, no respiratory distress or use of accessory muscles, speaking in full sentences, no tachypnea. EXTREMITIES: No pedal edema or cyanosis. SKIN: Normal skin appearance. NEUROLOGIC: Alert and oriented x4. PSHYCHIATRIC: Appropriate affect, mood normal, behavior normal, intact thought and speech. LABORATORY DATA: I have personally reviewed and interpreted each of the patient?s relevant lab tests, abnormal findings are below: Date 06/11/24 06/12/24 ??WHITE?BLOOD?COUNT?(Thou/mm3) ? 13.0?H 10.0 8.7 ??RED?BLOOD?COUNT?(Miln/mm3) ? 2.39?L 2.91?L 2.76?L ??HEMOGLOBIN?(gm/dl) 8.0?L 7.1?L 8.6?L 8.1?L ??HEMATOCRIT?(%) 25.1?L 21.8?LL 25.5?L 24.4?L ??PLATELET?COUNT?(Thou/mm3) ? 153 154 131?L ??NEUTROPHILS?%,?AUTO?(%) ? 78 66 55 ??LYMPH?%,?AUTO?(%) ? 15 27 37 ??NEUTROPHILS,?AUTO?(Thou/mm3) ? 10.1?H 6.5 4.8 ASSESSMENT/PLAN: #1 Infiltrating lobular carcinoma 1 x 0.6 x 0.5 cm diagnosed on 06/10/2024 patient's recent biopsy showed high-grade DCIS recurrence and underwent left mastectomy. Right mastectomy prophylactically done with no cancer. Patient have a history of stage IIIa (pT2, pN2a,cM0) ER positive TN negative HER-2/kal overexpressed invasive ductal carcinoma of right breast. Status post surgery, radiation therapy, adjuvant chemotherapy Patient had endometrial biopsy which showed hyperplasia without atypia. Patient's Aromasin was stopped in July 2023 Plan is to send Ms. Best for surgery for possible bilateral mastectomy with reconstruction Patient was already started by me on exemestane I will get Oncotype DX to see if patient need chemotherapy CBC CMP Oncotype/prosigna natadriaa bone density RETURN TO CLINIC: 2 weeks with the results BILLING AND COMPLIANCE: I reviewed external records from providers outside my specialty as summarized above. I spent a total of 50 minutes on this patient?s care on the day of their visit excluding time spent related to any billed procedures. This time includes time spent with the patient as well as time spent documenting in the medical record, reviewing patients records and tests, obtaining history, placing orders, communicating with other healthcare professionals, counseling the patient, family or caregiver, and/or care coordination for the diagnoses above. Electronically Signed by: Steve Rebollar MD T: 12:59 AM CC: Zahida?Rosanne? PCP: Mihir Marr Referring: Mihir Marr This document was completed utilizing speech recognition software. Grammatical errors, random word insertions, pronoun errors, and incomplete sentences are an occasional consequence of this system due to software limitations, ambient noise, and hardware issues. Any formal questions or concerns about the content, text or information contained within the body of this dictation should be directly addressed to the provider for clarification.
== END 2024-07-18 23:59 | disposition home or self-care (01) ==
LOC: SCTC 14:08
PROVIDERS: PCP Family Medicine; Referring Provider Family Medicine; Visit Provider Internal Medicine Hematology & Oncology
DX: C50.912 Malignant neoplasm of unspecified site of left female breast (principal); Z17.0 Estrogen receptor positive status [ER+]; Z17.22 Progesterone receptor negative status; Z17.32 Human epidermal growth factor receptor 2 negative status; Z90.13 Acquired absence of bilateral breasts and nipples
CPT/HCPCS: 99212; G0463

== ENCOUNTER → 2024-07-07 | Outpatient (CLI) | payer MEDICARE, MEDICAID, SELFPAY ==
[2024-07-07 09:38] LABS: Misc Send Out* See Sep Rpt
== END | disposition home or self-care (01) ==
LOC: COPL 09:01
PROVIDERS: PCP Registered Nurse Community Health; Referring Provider Internal Medicine Hematology & Oncology; Visit Provider Internal Medicine Hematology & Oncology
DX: C50.211 Malignant neoplasm of upper-inner quadrant of right female breast (principal)

== ENCOUNTER 2024-08-29 10:10 | Outpatient (RCR) | payer MEDICARE, MEDICAID, SELFPAY ==
--- NOTE | 2024-08-29 12:49 | CTCFLWUP_ITS ---
Patient: DEVORA BEST : 1955 Page 2 of 2 FOLLOW UP NOTE DATE OF SERVICE: 08/29/2024 NAME: DEVORA BEST ACCOUNT: [id number] : 1955 AGE: 69 INTERVAL HISTORY: Subjective: Chief Complaint Follow-up for breast cancer treatment, review of Oncotype DX results History of Present Illness Devora Best, a patient with a history of breast cancer, presents for follow-up regarding her Oncotype DX results and ongoing cancer management. The patient's Oncotype DX score is reported to be very low, indicating a low risk of cancer recurrence. She has been taking exemestane since 2020 and underwent bilateral mastectomy on July 08, 2024. The patient reports adherence to her current medication regimen, including exemestane and weekly vitamin D as prescribed by her primary care physician. She has not had a bone density test in approximately two years. The patient denies any specific complaints or new symptoms related to her breast cancer or treatment. Regarding her surgical history, the patient confirms having undergone bilateral mastectomy. She reports good dental health. The patient has a history of radiation therapy, which may have caused changes to her skin. No specific skin- related complaints are mentioned. Medical History - Breast cancer diagnosed in 2020 Surgical History - Bilateral mastectomy on July 08, 2024 Medications and Supplements - Exemestane - Taking since 2020 - Vitamin D - Once a week - Prescribed by primary doctor Objective: Physical Examination Skin: Thickened, hard area noted under the right mastectomy incision. Laboratory, Imaging, and Diagnostic Test Results - Oncotype DX: Low score (indicating low risk of cancer recurrence) - Bone density test: Last performed approximately 2 years ago (specific date not mentioned) DATE OF DIAGNOSIS: 07/25/2011 stage IIIa right breast cancer s/p lumpectomy 04/07/2024 reoccurrence of high-grade DCIS STAGE/TNM: IIIA T2 N2a M0 TREATMENT HISTORY: Care?Plan Start?Date Cycle Day Intent HISTORY OF PRESENT ILLNESS: Devora Best is a 69-year-old Wolof-speaking female with following oncology history. 07/14/2011: Patient had ultrasound-guided biopsy of the right breast nodule which showed ER positive IA negative HER-2/kal overexpressed invasive ductal carcinoma. 07/25/2011: Patient had right breast partial mastectomy, sentinel lymph node biopsy and right axillary dissection. She was found to have a 2.2cm invasive ductal carcinoma single focus, 2 out of 18 lymph nodes were positive for metastatic disease. 08/24/2011: Patient was started on TCH chemotherapy. She received a total of 6 cycles. Her last cycle was given on 12/17/2011. She continued on Herceptin for 1 year which was completed on 08/25/2012. 01/19/2012?03/10/2012: Patient had 6120 cGy of radiation therapy to the right chest wall. After completing the radiation therapy patient was tried on letrozole as well as anastrozole. She developed significant arthralgias. They were discontinued. Patient was on Faslodex which she received monthly which was changed to Aromasin on 01/11/2015. Aromasin was changed to tamoxifen on 12/31/2016 due to diffuse musculoskeletal pains. 10/19/2017: Patient had bilateral screening digital mammograms which showed benign findings BI-RADS Category 2. 09/17/2018: PET CT scan?10 mm weakly hypermetabolic oval mass retroareolar region right breast, SUV 2.03 Recommend follow-up diagnostic mammography and bilateral breast sonography 12/12/2018: Bilateral mammograms?BI-RADS category II: Benign Findings. Recommend 1 year follow-up mammogram. 12/12/2018: Bilateral breast ultrasound?BI-RADS Category 2: Benign findings.Right breast 1:00 oval mass 5 x 5 mm well marginated 1:00 oval mass 8 x 9 mm well marginated Left breast sonographic images no cystic or solid mass 12/31/2018: Bilateral breast MRI?BI-RADS Category 2: Benign findings Yearly follow-up mammography recommended Six-month right breast sonogram follow-up recommended 10/25/2019: Patient had endometrial biopsy? 11/08/2019: Performance Manager is recommending changing tamoxifen to AI. 11/16/2019: Tamoxifen discontinued. Patient is started on Aromasin. 10/05/2023: Aromasin discontinued. 04/07/2024 high-grade DCIS ER positive IA negative Ki-67 1 to 2% OTHER MEDICAL HISTORY/CONDITIONS: FAMILY HISTORY: ?Clone Family Hx? 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 atorvastatin - 20 mg 1 tab Daily 2. B12 - 5,000-100 mcg Daily 3. BenadryL - 25 mg 1 tab Every day before sleep 4. biotin - 1 mg 1 tab Daily 5. Calcium 600 + D(3) - 1 tab Twice a Day 6. exemestane - 25 mg 1 tab Daily 7. Fish Oil [place] 3-6-9 - 300-1,000 mg 2 Capsule Daily 8. gabapentin - 300 mg Three times a day 9. omeprazole - 20 mg 1 tab As needed 10. ondansetron - 4 mg 1 tab As needed 11. Ozempic - 2 mg/dose (8 mg/3 mL) Weekly 12. traMADol - 50 mg 2 tab Daily 13. Ultram - 50 mg 1 tab As needed 14. Vitamin D2 - 1,250 mcg (50,000 unit) 1 Capsule Daily?[place]ra Meds? Medications Last Reconciled by Linda Wan MD on 08/29/2024 ALLERGIES: amoxicillin-pot clavulanate; aspirin; Naproxen REVIEW OF SYSTEMS: A complete 14-point review of systems was performed and is negative except as noted in interval history. PHYSICAL EXAMINATION:?CloneBlock PE? VITAL SIGNS: Temperature?99, B/P?178/94, Oxygen?Saturation?96% Weight?200?lbs PAIN: 0 - No pain GENERAL APPEARANCE: Appears well, in no apparent distress, appropriately interactive. HEENT: Normocephalic, no temporal wasting, normal conjunctiva, no scleral icterus, normal hearing, lips without lesions, neck normal range of motion. CARDIOVASCULAR: Not assessed. PULMONARY: Normal respiratory effort, no respiratory distress or use of accessory muscles, speaking in full sentences, no tachypnea. EXTREMITIES: No pedal edema or cyanosis. SKIN: Normal skin appearance. NEUROLOGIC: Alert and oriented x4. PSHYCHIATRIC: Appropriate affect, mood normal, behavior normal, intact thought and speech. LABORATORY DATA: I have personally reviewed and interpreted each of the patient?s relevant lab tests, abnormal findings are below: Date 06/11/24 06/12/24 ??WHITE?BLOOD?COUNT?(Thou/mm3) ? 13.0?H 10.0 8.7 ??RED?BLOOD?COUNT?(Miln/mm3) ? 2.39?L 2.91?L 2.76?L ??HEMOGLOBIN?(gm/dl) 8.0?L 7.1?L 8.6?L 8.1?L ??HEMATOCRIT?(%) 25.1?L 21.8?LL 25.5?L 24.4?L ??PLATELET?COUNT?(Thou/mm3) ? 153 154 131?L ??NEUTROPHILS?%,?AUTO?(%) ? 78 66 55 ??LYMPH?%,?AUTO?(%) ? 15 27 37 ??NEUTROPHILS,?AUTO?(Thou/mm3) ? 10.1?H 6.5 4.8 ASSESSMENT/PLAN:?[facility] Assessment/Plan? #1 Infiltrating lobular carcinoma 1 x 0.6 x 0.5 cm diagnosed on 06/10/2024 patient's recent biopsy showed high-grade DCIS recurrence and underwent left mastectomy. Right mastectomy prophylactically done with no cancer. Patient have a history of stage IIIa (pT2, pN2a,cM0) ER positive IA negative HER-2/kal overexpressed invasive ductal carcinoma of right breast. Status post surgery, radiation therapy, adjuvant chemotherapy Patient had endometrial biopsy which showed hyperplasia without atypia. Patient's Aromasin was stopped in July 2023 Assessment and Plan: Devora Best, female patient with history of breast cancer, status post bilateral mastectomy, presenting for oncology follow-up. Breast Cancer Assessment: Patient has a history of breast cancer, status post bilateral mastectomy on July 08, 2024. Oncotype DX score is very low, indicating a low risk of cancer recurrence. Patient has been taking exemestane since 2020. A thickened, hard area was noted under the right mastectomy incision during examination. Previous radiation treatment may have caused skin changes. Plan: - Continue exemestane for at least five years total - Order CT scan and Akbar test to evaluate thickened area under right mastectomy incision - Perform Akbar test in office (Sara to handle) - Order PET-CT scan to check for any activity - Apply coconut oil or Vitamin E oil to skin for radiation-induced changes - Follow up after test results are available Bone Health Assessment: Patient reports taking vitamin D once weekly as prescribed by primary care physician. Last bone density test was performed approximately two years ago. Plan: - Continue current vitamin D supplementation - Order bone density test - If bone density is low, initiate medication to strengthen bonesONCOLOGY HISTORY:?CloneBlock Oncology Hx? DIAGNOSIS: Malignant neoplasm of upper-inner quadrant of right female breast [ICD10] C50.211 RETURN TO CLINIC: BILLING AND COMPLIANCE: I reviewed external records from providers outside my specialty as summarized above. I spent a total of 50 minutes on this patient?s care on the day of their visit excluding time spent related to any billed procedures. This time includes time spent with the patient as well as time spent documenting in the medical record, reviewing patients records and tests, obtaining history, placing orders, communicating with other healthcare professionals, counseling the patient, family or caregiver, and/or care coordination for the diagnoses above. Electronically Signed by: Steve Rebollar MD T: 12:47 PM CC: Zahida?Rosanne,? PCP: Matilda Rodriguez Referring: Matilda Rodriguez This document was completed utilizing speech recognition software. Grammatical errors, random word insertions, pronoun errors, and incomplete sentences are an occasional consequence of this system due to software limitations, ambient noise, and hardware issues. Any formal questions or concerns about the content, text or information contained within the body of this dictation should be directly addressed to the provider for clarification.
== END 2024-09-17 23:59 | disposition home or self-care (01) ==
LOC: SCTC 10:10
PROVIDERS: PCP Registered Nurse Community Health; Referring Provider Registered Nurse Community Health; Visit Provider Internal Medicine Hematology & Oncology
DX: C50.211 Malignant neoplasm of upper-inner quadrant of right female breast (principal); Z17.1 Estrogen receptor negative status [ER-]; Z17.22 Progesterone receptor negative status; Z90.13 Acquired absence of bilateral breasts and nipples; Z79.811 Long term (current) use of aromatase inhibitors; Z92.3 Personal history of irradiation
CPT/HCPCS: 99212; G0463

== ENCOUNTER → 2024-10-27 | Outpatient (CLI) | payer MEDICARE, MEDICAID, SELFPAY ==
--- NOTE | 2024-10-27 12:30 | XR_ITS ---
EXAMINATION: PET/CT FUSION SKULL TO THIGH EXAM DATE AND TIME: October 27, 2024 1317 hours Comparison PET/CT scan September 17, 2018 INDICATIONS: Diagnosis breast cancer restaging post treatment CTDI:vol (mGy) 7.87 DLP: (mGycm) 719 PROCEDURE: 15.80 mCi FDG was administered intravenously To allow for distribution and uptake of radiotracer, the patient was allowed to rest quietly in a shielded room. Imaging was performed on an integrated 16-slice PET/CT scanner, with scanning from the skull base to the mid thigh. Serum blood glucose at the time of the injection was measured 106 mg/dL. CT scanning was performed without oral or intravenous contrast material. FINDINGS: Head and Neck: There is no patricia hypermetabolism in the neck. The visualized portions of the brain are normal in appearance on CT. Chest: There is no patricia hypermetabolism in the chest. 8 mm calcified granuloma right lung. Right mastectomy No breast or chest wall mass or axillary lymphadenopathy Abdomen and Pelvis: There is no patricia hypermetabolism in retroperitoneal or pelvic chains. The spleen is normal in size and FDG avidity. Musculoskeletal: Marrow uptake is within normal range. IMPRESSION: No interval metastatic disease
== END | disposition home or self-care (01) ==
PROVIDERS: PCP Registered Nurse Community Health; Referring Provider Internal Medicine Hematology & Oncology; Visit Provider Internal Medicine Hematology & Oncology
DX: C50.211 Malignant neoplasm of upper-inner quadrant of right female breast (principal); C50.912 Malignant neoplasm of unspecified site of left female breast
CPT/HCPCS: 78815; A9552

== ENCOUNTER → 2024-11-18 | Outpatient (CLI) | payer MEDICARE, MEDICAID, SELFPAY ==
--- NOTE | 2024-11-18 10:41 | XR_ITS ---
Examination: CT brain head without contrast. 2-D sagittal coronal reconstructions Date and time of exam:November 18, 2024 1105 hours INDICATIONS: Syncopal episodes beginning 3 months ago, diagnosis breast cancer CTDI: vol (mGy):50.4 DLP: (mGycm):1038 Technique: Multiple CT axial sections of the brain have been obtained, 5 mm slice thickness. Contrast has not been administered. 2-D sagittal, coronal reconstructions have been obtained Low dose protocols were performed. One or more of the following dose reduction techniques were used; automated exposure control, adjustment of the mA and/or KV according to patient size, use of iterative reconstruction technique. Findings: Mild asymmetric left lateral ventricular enlargement, shift of the frontal horns to the right 3 mm Intra-axial or extra-axial hemorrhage density is not seen. No mass effect or midline shift Basal cisterns are not remarkable. Fourth ventricle is midline. Cranial vault intact. Impression: Negative for acute hemorrhage,. Mild asymmetric left lateral ventricular enlargement as above As clinically warranted, brain MRI post contrast follow-up would best assess for early cerebral metastatic disease
== END | disposition home or self-care (01) ==
LOC: CCTX 10:32
PROVIDERS: PCP Registered Nurse Community Health; Referring Provider Registered Nurse Community Health; Visit Provider Registered Nurse Community Health
DX: I51.7 Cardiomegaly (principal)
CPT/HCPCS: 70450

== ENCOUNTER 2024-11-29 10:34 | Outpatient (RCR) | payer MEDICARE, MEDICAID, SELFPAY ==
--- NOTE | 2024-11-29 11:20 | CTCFLWUP_ITS ---
Patient: DEVORA BEST : 1955 Page 4 of 5 FOLLOW UP NOTE DATE OF SERVICE: 11/29/2024 NAME: DEVORA BEST ACCOUNT: [id number] : 1955 AGE: 69 INTERVAL HISTORY: Subjective: Chief Complaint Follow-up for breast cancer treatment, patient is here to review PET/CT scan . History of Present Illness Patient is doing well. Have no new complaints . The patient reports adherence to her current medication regimen, including exemestane and weekly vitamin D as prescribed by her primary care physician. She has not had a bone density test in approximately two years. The patient denies any specific complaints or new symptoms related to her breast cancer or treatment. Regarding her surgical history, the patient confirms having undergone bilateral mastectomy. She reports good dental health. The patient has a history of radiation therapy, which may have caused changes to her skin. No specific skin- related complaints are mentioned. Medical History - Breast cancer diagnosed in 2020 Surgical History - Bilateral mastectomy on July 08, 2024 Medications and Supplements - Exemestane - Taking since 2020 - Vitamin D - Once a week - Prescribed by primary doctor Objective: Physical Examination Skin: Thickened, hard area noted under the right mastectomy incision. Laboratory, Imaging, and Diagnostic Test Results - Oncotype DX: Low score (indicating low risk of cancer recurrence) - Bone density test: Last performed approximately 2 years ago (specific date not mentioned) ONCOLOGY HISTORY: DIAGNOSIS: Malignant neoplasm of upper-inner quadrant of right female breast [ICD10] C50.211 Malignant neoplasm of upper-inner quadrant of right female breast [ICD10] C50.211 DATE OF DIAGNOSIS: 07/25/2011 STAGE/TNM: IIIA T2 N2a M0 TREATMENT HISTORY: Care?Plan Start?Date Cycle Day Intent HISTORY OF PRESENT ILLNESS: Devora Best is a 69-year-old Nepali-speaking female with following oncology history. 07/14/2011: Patient had ultrasound-guided biopsy of the right breast nodule which showed ER positive MO negative HER-2/kal overexpressed invasive ductal carcinoma. 07/25/2011: Patient had right breast partial mastectomy, sentinel lymph node biopsy and right axillary dissection. She was found to have a 2.2cm invasive ductal carcinoma single focus, 2 out of 18 lymph nodes were positive for metastatic disease. 08/24/2011: Patient was started on TCH chemotherapy. She received a total of 6 cycles. Her last cycle was given on 12/17/2011. She continued on Herceptin for 1 year which was completed on 08/25/2012. 01/19/2012?03/10/2012: Patient had 6120 cGy of radiation therapy to the right chest wall. After completing the radiation therapy patient was tried on letrozole as well as anastrozole. She developed significant arthralgias. They were discontinued. Patient was on Faslodex which she received monthly which was changed to Aromasin on 01/11/2015. Aromasin was changed to tamoxifen on 12/31/2016 due to diffuse musculoskeletal pains. 10/19/2017: Patient had bilateral screening digital mammograms which showed benign findings BI-RADS Category 2. 09/17/2018: PET CT scan?10 mm weakly hypermetabolic oval mass retroareolar region right breast, SUV 2.03 Recommend follow-up diagnostic mammography and bilateral breast sonography 12/12/2018: Bilateral mammograms?BI-RADS category II: Benign Findings. Recommend 1 year follow-up mammogram. 12/12/2018: Bilateral breast ultrasound?BI-RADS Category 2: Benign findings.Right breast 1:00 oval mass 5 x 5 mm well marginated 1:00 oval mass 8 x 9 mm well marginated Left breast sonographic images no cystic or solid mass 12/31/2018: Bilateral breast MRI?BI-RADS Category 2: Benign findings Yearly follow-up mammography recommended Six-month right breast sonogram follow-up recommended 10/25/2019: Patient had endometrial biopsy? 11/08/2019: [employer]man is recommending changing tamoxifen to AI. 11/16/2019: Tamoxifen discontinued. Patient is started on Aromasin. 10/05/2023: Aromasin discontinued. 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 atorvastatin - 20 mg 1 tab Daily 2. B12 - 5,000-100 mcg Daily 3. BenadryL - 25 mg 1 tab Every day before sleep 4. biotin - 1 mg 1 tab Daily 5. Calcium 600 + D(3) - 1 tab Twice a Day 6. exemestane - 25 mg 1 tab Daily 7. Fish Oil Clayton 3-6-9 - 300-1,000 mg 2 Capsule Daily 8. gabapentin - 300 mg Three times a day 9. omeprazole - 20 mg 1 tab As needed 10. ondansetron - 4 mg 1 tab As needed 11. Ozempic - 2 mg/dose (8 mg/3 mL) Weekly 12. traMADol - 50 mg 2 tab Daily 13. Ultram - 50 mg 1 tab As needed 14. Vitamin D2 - 1,250 mcg (50,000 unit) 1 Capsule Daily Medications Last Reconciled by Linda Wan MD on 11/29/2024 ALLERGIES: amoxicillin-pot clavulanate; aspirin; Naproxen REVIEW OF SYSTEMS: A complete 14-point review of systems was performed and is negative except as noted in interval history. PHYSICAL EXAMINATION: VITAL SIGNS: Temperature?98.3, B/P?157/77, Oxygen?Saturation?95% Weight?200?lbs PAIN: 0 - No pain ECOG Performance Status: 0 - Asymptomatic and fully active GENERAL APPEARANCE: Appears well, in no apparent distress, appropriately interactive. HEENT: Normocephalic, no temporal wasting, normal conjunctiva, no scleral icterus, normal hearing, lips without lesions, neck normal range of motion. CARDIOVASCULAR: Not assessed. PULMONARY: Normal respiratory effort, no respiratory distress or use of accessory muscles, speaking in full sentences, no tachypnea. EXTREMITIES: No pedal edema or cyanosis. SKIN: Normal skin appearance. NEUROLOGIC: Alert and oriented x4. PSHYCHIATRIC: Appropriate affect, mood normal, behavior normal, intact thought and speech. LABORATORY DATA: I have personally reviewed and interpreted each of the patient?s relevant lab tests, abnormal findings are below: Date 06/11/24 06/12/24 ??WHITE?BLOOD?COUNT?(Thou/mm3) ? 13.0?H 10.0 8.7 ??RED?BLOOD?COUNT?(Miln/mm3) ? 2.39?L 2.91?L 2.76?L ??HEMOGLOBIN?(gm/dl) 8.0?L 7.1?L 8.6?L 8.1?L ??HEMATOCRIT?(%) 25.1?L 21.8?LL 25.5?L 24.4?L ??PLATELET?COUNT?(Thou/mm3) ? 153 154 131?L ??NEUTROPHILS?%,?AUTO?(%) ? 78 66 55 ??LYMPH?%,?AUTO?(%) ? 15 27 37 ??NEUTROPHILS,?AUTO?(Thou/mm3) ? 10.1?H 6.5 4.8 ASSESSMENT/PLAN: #1 Infiltrating lobular carcinoma 1 x 0.6 x 0.5 cm diagnosed on 06/10/2024 patient's recent biopsy showed high-grade DCIS recurrence and underwent left mastectomy. Right mastectomy prophylactically done with no cancer. 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 Status post surgery, radiation therapy, adjuvant chemotherapy Patient had endometrial biopsy which showed hyperplasia without atypia. Patient's Aromasin was stopped in July 2023 Assessment and Plan: Devora Best, female patient with history of breast cancer, status post bilateral mastectomy, presenting for oncology follow-up. Breast Cancer Assessment: Patient has a history of breast cancer, status post bilateral mastectomy on July 08, 2024. Oncotype DX score is very low, indicating a low risk of cancer recurrence. Patient has been taking exemestane since 2020. A thickened, hard area was noted under the right mastectomy incision during examination. Previous radiation treatment may have caused skin changes. Plan: - Continue exemestane for at least five years total Petct negative 10/2024 - Apply coconut oil or Vitamin E oil to skin for radiation-induced changes - Follow up after test results are available Bone Health Assessment: Patient reports taking vitamin D once weekly as prescribed by primary care physician. Last bone density test was performed approximately two years ago. Plan: - Continue current vitamin D supplementation - Order bone density test - If bone density is low, initiate medication to strengthen bonesONCOLOGY HISTORY: DIAGNOSIS: Malignant neoplasm of upper-inner quadrant of right female breast [ICD10] C50.211 ORDERS: Order # Description RETURN TO CLINIC: I reviewed the diagnosis, prognosis, and recommended treatment/procedure options with the patient (and/or their legal personal financial representative), including the potential benefits, risks, side effects and alternative therapies. We also discussed the option of no treatment and the possibility of clinical trial participation, if applicable. All questions were addressed, and they demonstrated understanding. They provided informed consent to proceed with the proposed plan of care. BILLING AND COMPLIANCE: I reviewed external records from providers outside my specialty as summarized above. I spent a total of 50 minutes on this patient?s care on the day of their visit excluding time spent related to any billed procedures. This time includes time spent with the patient as well as time spent documenting in the medical record, reviewing patients records and tests, obtaining history, placing orders, communicating with other healthcare professionals, counseling the patient, family or caregiver, and/or care coordination for the diagnoses above. Electronically Signed by: {Object.Sanct_ID*[email or web address]@M}, {Object.Sanct_ID*PnP.Suffix@U} D: {Object.Sanct_Date} T: {Object.Sanct_Time} CC: Zahida?Rosanne,? PCP: Matilda Rodriguez Referring: Matilda Rodriguez This document was completed utilizing speech recognition software. Grammatical errors, random word insertions, pronoun errors, and incomplete sentences are an occasional consequence of this system due to software limitations, ambient noise, and hardware issues. Any formal questions or concerns about the content, text or information contained within the body of this dictation should be directly addressed to the provider for clarification.
== END 2024-12-18 23:59 | disposition home or self-care (01) ==
LOC: SCTC 10:34
PROVIDERS: PCP Registered Nurse Community Health; Referring Provider Registered Nurse Community Health; Visit Provider Internal Medicine Hematology & Oncology
DX: D05.82 Other specified type of carcinoma in situ of left breast (principal); Z90.13 Acquired absence of bilateral breasts and nipples; Z79.811 Long term (current) use of aromatase inhibitors
CPT/HCPCS: 99212; G0463

== ENCOUNTER → 2025-02-10 | Outpatient (CLI) | payer MEDICARE, MEDICAID, SELFPAY ==
--- NOTE | 2025-02-10 09:00 | XR_ITS ---
Examination: MRI of brain without intravenous contrast. MRI brain with intravenous contrast. Date and time of exam: February 10, 2025, 1118 hours INDICATIONS: Dizziness with loss of vision episodes over the last year Technique: Multiple axial and sagittal images of the brain to been obtained. Siemens high-resolution 1.52 Erin short bore scanner utilized. Sagittal sections, T1 weighted images, TR 500, TE 14, are performed. Axial sections proton-density and T2-weighted images have been obtained. Inversion recovery axial images, TR 9260, TE 111, TR 2500. Diffusion weighted images, axial sections, TR 4800, TE 128, B value 1000. Axial sections, ADC map, TR 4800, TE 128. Axial and coronal images were also obtained post 18 cc gadolinium administered intravenously. Findings:: Enlargement of the sella turcica is not present. The optic chiasm and infundibular stalk are not remarkable. There is no localized enlargement of the medulla or kobe. Fourth ventricle and cerebellar tonsils appear normal in position. No subacute area of hemorrhage density is seen. Fourth ventricle is midline. Mass in the cerebellopontine angle region is not evident. 7th and 8th nerve complexes exhibit symmetry Globes are symmetrical Orbital musculature including medial lateral rectus muscles do not exhibit abnormality Increased white matter signal is mild Effacement of the cortical sulcal markings is not identified. Mass effect upon the ventricular system is not identified. Diffusion-weighted images demonstrate no focus of restricted diffusion Contrast images demonstrate ovoid mass lateral to the kobe, 11 mm with equivocal enhancement on the postcontrast images Impression: Negative for acute hemorrhage mass effect or midline shift No acute infarct 11 mm ovoid mass lateral to the kobe on the left side with equivocal enhancement on the postcontrast images Recommend this patient return for post contrast triple dose MRI images centered at the brainstem to exclude small tumor mass
[2025-02-10 10:20] LABS: Basophils # (Auto) 0.1 Thou/mm3 (0.0-0.2); Basophils % (Auto) 1 % (0-2.5); Eosinophils # (Auto) 0.2 Thou/mm3 (0.0-0.5); Eosinophils % (Auto) 2 % (0-10); Hematocrit 45.8 % (36.0-46.0); Hemoglobin 15.4 g/dL (12.0-16.0); Immature Granulocytes Auto 0.01 Thou/mm3 (0.00-0.00); Lymphocytes # (Auto) 2.2 Thou/mm3 (1.0-4.8); Lymphocytes % (Auto) 32 % (10-50); Mean Corpuscular HGB Conc 33.6 g/dl (31.0-37.0); Mean Corpuscular Hemoglobin 30.4 pg (25.0-35.0); Mean Corpuscular Volume 91 fL (80-100); Monocytes # (Auto) 0.4 Thou/mm3 (0.0-0.8); Monocytes % (Auto) 6 % (0-12); Neutrophils # (Auto) 4.1 Thou/mm3 (1.8-7.7); Neutrophils % (Auto) 59 % (37-80); Nucleated Red Blood Cell # 0.00 Thou/mm3 (0.00-0.00); Nucleated Red Blood Cell % 0 /100 WBC (0); Platelet Count 231 Thou/mm3 (140-440); RDW Standard Deviation 40.9 fL (36.4-46.3); Red Blood Count 5.06 Miln/mm3 (4.00-5.20); White Blood Count 7.0 Thou/mm3 (3.6-11.0)
[2025-02-10 10:31] LABS: Glucose Estimated Average 126 mg/dL (80-131); Hemoglobin A1C 6.0 % Hgb (4.8-6.0)
[2025-02-10 10:35] LABS: Alanine Aminotransferase 13 U/L (10-49); Albumin, Serum 5.2 gm/dL (3.4-4.8); Albumin/Globulin Ratio 2.7 (1.2-2.2); Alkaline Phosphatase 123 U/L (46-116); Anion Gap 9 (7-16); Aspartate Amino Transferase 14 U/L (0-34); BUN/Creatinine Ratio 11 Ratio (12-20); Bilirubin,Total 2.0 mg/dL (0.3-1.2); Blood Urea Nitrogen 10 mg/dL (9-23); Calcium 9.9 mg/dL (8.3-10.6); Calcium (Corrected) 9.9 mg/dL (8.5-10.1); Carbon Dioxide 30.1 mMol/L (20.0-31.0); Cardiac Risk Estimate 3.2 RATIO (3.7-5.6); Chloride 104 mMol/L (98-107); Cholesterol 140 mg/dL (132-200); Creatinine (Component) 0.9 mg/dL (0.6-1.3); Globulin 1.9 gm/dL (2.3-3.5); Glucose 112 mg/dL (74-106); HDL Cholesterol 44 mg/dL (40-60); LDL Cholesterol,Calculated 73 mg/dL (0-130); Osmolality,Calculated 284 (275-295); Potassium 4.7 mMol/L (3.4-5.1); Sodium 143 mMol/L (136-145); Total Protein 7.1 gm/dL (5.7-8.2); Triglycerides 113 mg/dL (30-150); eGFR > 60 See Note
[2025-02-10 10:38] LABS: Creatinine MALB Rnd Ur 112 mg/dL (30-125); Microalbumin Creat Ratio 15 mg/gCrea (<30); Microalbumin, Random Urine 17 mg/L (0-300)
== END | disposition home or self-care (01) ==
PROVIDERS: PCP Registered Nurse Community Health; Referring Provider Registered Nurse Community Health; Visit Provider Registered Nurse Community Health
DX: R22.0 Localized swelling, mass and lump, head (principal); E11.65 Type 2 diabetes mellitus with hyperglycemia; E78.5 Hyperlipidemia, unspecified; I10 Essential (primary) hypertension
CPT/HCPCS: 36415; 70552; 70553; 80053; 80061; 82043; 82570; 83036; 85025; A9577